=== PATIENT | female | born 1950 | race African-American/Black ===

== ENCOUNTER → 2017-11-23 13:42 | Outpatient (CLI) | payer MEDICARE, OTHER, SELFPAY ==
[2017-11-23 15:02] LABS: Hematocrit 37.3 % (37-47); Hemoglobin 11.9 g/dl (12.0-15.0); Mean Corp Hgb Conc 31.9 g/gl (32-36); Mean Corpuscular Hgb 29.1 pg (27.0-32.0); Mean Corpuscular Volume 91.2 fL (81-99); Mean Platelet Vol. 10.5 fl (6.2-12.0); Platelet Count 253 K/mm3 (150-450); RBC Distribution Width CV 12.3 % (11.6-14.6); RBC Distribution Width SD 41.1 fl (35.1-43.9); Red Blood Count 4.09 M/mm3 (4.2-5.4); Scan Indicated on CBC? Y/N NO; White Blood Count 7.4 K/mm3 (4.4-11.0)
[2017-11-23 15:16] LABS: Anion Gap 13 (5-15); BUN 33 mg/dL (7-18); BUN/Creat Ratio 17.1 RATIO (10-20); Calcium,Total 9.4 mg/dL (8.5-10.1); Chloride 101 mmol/L (98-107); Creatinine, Serum 1.93 mg/dL (0.55-1.02); EST Glomerular Filtration Rate 28 mL/min (>60); Est Glom Filt Rate - Afr Amer 33 mL/min (>60); Glucose 109 mg/dL (74-106); Potassium 3.8 mmol/L (3.5-5.1); Sodium Level 141 mmol/L (136-145)
== END ==
PROVIDERS: Family Provider Family Medicine; PCP Family Medicine; Visit Provider Physician Assistant Surgical
DX: Z01.818 Encounter for other preprocedural examination (principal)
CPT/HCPCS: 36415; 80048; 85027; 93005

== ENCOUNTER → 2019-10-04 15:48 | Outpatient (CLI) | payer MEDICARE, OTHER, SELFPAY ==
[2014-12-06 10:45] VITALS: BMI 21.2
--- NOTE | 2019-10-04 11:25 | CYSPIN_PTH ---
PATIENT: NOLBERTO GALDAMEZ LOC: LAB U#:[id number] AGE/SX: 74/F ROOM: RE10/04/[address]: JUAN Dykes : 1950 BED: DIS: SPEC #: [id number] RECD: 10/05/19 09:19 STATUS: YADIRA NASRIN #: [id number] DIPAK: 10/04/19 11:[address]: Lesvia Neil NP DEPT: CYTOLOGY RECD BY: Marquis Murphy Tissues: Urine Procedures: Pap Stain (control) Special Stain Group II Cytospin Fluid HEADER OPERATION: Not noted PRE-OP DIAGNOSIS: Asymptomatic microscopic hematuria TISSUE SUBMITTED: Urine for cytology DIAGNOSIS CYTOLOGY Urine for cytology (cytospin): A few clusters of urothelial cells with mild atypia noted. Numerous organisms consistent with bacteria are noted. See comment. ROGELIO:kenrick 10/06/19 COMMENT The specimen predominantly consists of squamous epithelial cells. Clinical correlation and appropriate follow up are necessary. Case has been reviewed in consultation with Dr. Howe who concurs with the above diagnosis. IDC:AM CYTOLOGY STUDY Slides are reviewed. CYTOLOGY GROSS Received is 70 ml of yellow cloudy fluid labeled with the patient's name and and designated per the requisition as urine. Submitted for cytology preparation. / kenrick 10/05/19 TC:5 CPT: 72817
[2019-10-04 16:58] LABS: Cytology, Body Fluid / CSF SEE PATHOLOGY REPORT
== END ==
PROVIDERS: Referring Provider Nurse Practitioner Adult Health; Visit Provider Nurse Practitioner Adult Health
DX: R31.21 Asymptomatic microscopic hematuria (principal)
CPT/HCPCS: 88108; 88313